=== PATIENT | male | born 1980 | race Caucasian/White ===

== ENCOUNTER 2024-03-16 18:09 | Emergency (ER) | payer OTHER ==
[~2024-03-16] VITALS: Ht 182.9 cm; Wt 72.6 kg
[2024-03-16 18:18] VITALS: BP 143/93; TEMP 98.6; O2SAT 99
== END 2024-03-16 18:48 | disposition home or self-care (01) ==
LOC: ER 18:17
DX: S49.82XA Other specified injuries of left shoulder and upper arm, initial encounter (principal); W46.0XXA Contact with hypodermic needle, initial encounter; Y93.89 Activity, other specified; Y92.89 Other specified places as the place of occurrence of the external cause; Y99.8 Other external cause status